=== PATIENT | female | born 1965 | race Caucasian/White ===

== ENCOUNTER 2016-09-16 06:09 | Emergency (ER) | payer BC ==
[2016-09-16] MEDS ORDERED: DIPHENHYDRAMINE 25 MG CAP PO ONE (06:21)
[2016-09-16] MEDS ORDERED: PREDNISONE 10 MG TAB PO ONE (06:21)
--- NOTE | 2016-09-16 06:25 | EDPRACDOC ---
- General Information Chief Complaint: Allergic Reaction Stated Complaint: ALLERGIC REACTION Time Seen by Provider: 09/16/16 06:16 Information Source: Patient Mode Of Arrival: Car Home Medications: Home Medications Norgestimate-Ethinyl Estradiol [Tri-Sprintec Tablet] 1 tab PO DAILY 06/08/13 Carvedilol [Coreg] 12.5 mg PO BID 08/22/14 Cyanocobalamin (Vitamin B-12) [Vitamin B-12] 500 mcg PO DAILY 08/22/14 Hydrocodone Bit/Acetaminophen [Lortab 5/325] 1 tab PO Q6H PRN #14 tab 08/22/14 Losartan/Hydrochlorothiazide [Hyzaar 50-12.5 Tablet] 1 tab PO DAILY 08/22/14 Diphenhydramine [Benadryl] 25 mg PO TID #30 cap 04/03/15 Epinephrine [Epipen 2-Segundo] 0.3 mg IJ . PRN #1 pen.injctr 04/03/15 Prednisone [Sterapred DS 10 mg/12 day pack] 48 tab PO DIR #1 pack 04/03/15 Ranitidine HCl [Zantac] 150 mg PO DAILY #10 tablet 04/03/15 Prednisone [Deltasone, Orasone] 50 mg PO DAILY #5 tab 09/16/16 Allergies/Adverse Reactions: Allergies Allergy/AdvReac Type Severity Reaction Status Date / Time shellfish derived Allergy Severe hives Verified 04/03/15 01:04 - History of Present Illness HPI: PT PRESENTS WITH PERSISTENT HIVES SINCE YESTERDAY WHEN SHE USED A NEW HAIR PRODUCT. HAS HISTORY OF SAME. Exposure occurred: [employer] Exposed to: Cosmetic Symptoms started: Days (2) Symptoms Developed: Reports: Pruritus, Rash. Denies: Facial swelling, Shortness of breath, Throat swelling Reaction Location: Reports: Generalized ED Past Medical History - History Reviewed Yes Nurses notes reviewed and agree except as marked - Patient Medical History Cardiac History: Reports: Atrial Fibrillation, Hypertension, Congestive Heart Failure, Hypercholesterolemia Psychological History: Denies: Depression Systemic History: Denies: Cancer - Family Medical History Reports: Hypertension (everyone), Diabetes (maternal grandmother), Cardiac Disorders (all 4 grandparents). Denies: Cancer, Stroke - Social Medical History Smoking Status: Never smoker Lives With: Family Lives In: Home EDM Review of Systems - Review of Systems ROS Negative Except as Marked: Yes All systems reviewed and were negative except as marked Constitutional: negative: Fever Respiratory: negative: Shortness of Breath Cardiovascular: negative: Chest Pain Gastrointestinal: negative: Pain, Vomiting Integumentary: Itching, Rash (DIFFUSE HIVES) - Physical Exam Constitutional: Alert Oriented to: Time, Person, Place Last recorded Vital Signs: Last Vital Signs Temp 97.8 F 09/16/16 06:17 Pulse 61 09/16/16 06:17 Resp 18 09/16/16 06:17 BP 203/88 H 09/16/16 06:17 Pulse Ox 100 09/16/16 06:17 Oxygen Pulse Oxygen Saturation 100 O2 Device Room Air Oxygen Flow Rate Fraction of Inspired Oxygen ( FIO2) - HEENT Head: negative: Deformity, Laceration Eye Exam: negative: Conjunctival Injection, Pale Conjunctiva Oropharynx: negative: Membranes Dry Nose: negative: Congestion, Discharge Neck: negative: Limited ROM - Respiratory/Cardiovascular Respiratory: Normal - CTA. negative: Accessory Muscle Use, Diminished, Tachypnea Cardiovascular: negative: Bradycardia, Tachycardia, Irregular - Integumentary Skin: Warm, Dry, Rash (DIFFUSE HIVES) - Neurologic Memory Impaired: Normal Motor Function: Normal Mood Description: Anxious, Appropriate Thought: Coherent Perception: Normal Decision Time to Discharge: 06:24 - Departure Yes I personally saw and evaluated the patient. Disposition: Home Condition: Stable Final Diagnosis: Allergic urticaria Instructions: Urticaria (ED) Education/Counseling Given To: Patient, Family Member Education/Counseling Given Regarding: Diagnosis, Treatment, Prognosis, Follow Up Referrals: Jenny Castro PA [Primary Care Provider] - Call for Appointment Prescriptions: Prednisone [Deltasone, Orasone] 50 mg PO DAILY #5 tab
[2016-09-16 06:36] VITALS: BP 190/82; PULSE 62; TEMP 97.8; BMI 30.2
== END 2016-09-16 06:35 | disposition home or self-care (01) ==
LOC: ED 06:09
DX: L50.0 Allergic urticaria (principal)
CPT/HCPCS: 99283; J3490